=== PATIENT | female | born 1960 | race Two or more races ===

== ENCOUNTER 2023-09-03 05:45 | Day surgery (SDC) | payer OTHER ==
[~2023-09-03] VITALS: Ht 165.1 cm; Wt 71.7 kg
[~2023-09-03 05:45] MED LIST: CLONAZEPAM1 MG; ECOTRIN81 MG; PROTONIX20 MG PO; PROZAC10 M1 PO; TOPROL XL25 M1 PO
[2023-09-03] MEDS ORDERED: HEMOSTATIC MATRIX 1 KIT KIT TOP ONE ×2 (12:46→13:00)
[2023-09-03] MEDS ORDERED: SURGIFLO APPLICATOR 1 EACH APPL TOP ONE ×2 (12:46→13:00)
[2023-09-03] MEDS ORDERED: SUGAMMADEX SODIUM 200 MG/2 ML VIAL IV ONE (13:30)
[2023-09-03] MEDS ORDERED: PERCOCET 5-3251 EACH PO (13:33)
== END 2023-09-03 16:00 | disposition home or self-care (01) ==
LOC: CIR.AMB 05:45
PROVIDERS: ATTEND Obstetrics & Gynecology Gynecology
DX: N83.292 Other ovarian cyst, left side (principal); D25.2 Subserosal leiomyoma of uterus; Z91.013 Allergy to seafood; Z88.0 Allergy status to penicillin; Z91.041 Radiographic dye allergy status